=== PATIENT | female | born 1990 | race Caucasian/White ===

== ENCOUNTER 2016-07-28 10:40 | Observation (INO) | payer OTHER ==
[~2016-07-28] VITALS: Ht 165 cm; Wt 79.4 kg
== END 2016-07-28 15:25 | disposition home or self-care (01) ==
LOC: 4S 10:40
PROVIDERS: ADMIT Obstetrics & Gynecology; ATTEND Obstetrics & Gynecology
DX: O36.8130 Decreased fetal movements, third trimester, not applicable or unspecified (principal); Z3A.36 36 weeks gestation of pregnancy
CPT/HCPCS: 59025; 76805; G0378

== ENCOUNTER 2016-08-08 11:28 | Inpatient (IN) | payer OTHER ==
[~2016-08-08] VITALS: Ht 165 cm; Wt 80.3 kg
[2016-08-08] MEDS ORDERED: RINGERS SOLUTION,LACTATED 1,000 ML IV PRN (11:30)
[2016-08-08] MEDS ORDERED: LIDOCAINE HCL/PF 1% 30 ML VIAL INJ PRN (11:30)
[2016-08-08] MEDS ORDERED: METHYLERGONOVINE MALEATE 0.2 MG/ML VIAL IM PRN (11:30)
[2016-08-08] MEDS ORDERED: MISOPROSTOL 25 MCG TABLET VG SCH (11:30)
[2016-08-08] MEDS ORDERED: CITRIC ACID/SODIUM CITRATE 30 ML SOLUTION UDCUP PO PRN (11:30)
[2016-08-08] MEDS ORDERED: FentaNYL CITRATE-PF 100 MCG/2 ML VIAL IVP PRN (11:30)
[2016-08-08] MEDS ORDERED: METOCLOPRAMIDE HCL 5 MG/ML 2 ML VIAL IVP PRN (11:30)
[2016-08-08] MEDS ORDERED: OXYTOCIN 30 UNITS/LACT RINGERS 500 ML IV ONE (11:30)
[2016-08-08 11:42] VITALS: BP 119/78
[2016-08-08] MEDS ORDERED: PREN1TAB80 PO (11:46)
[2016-08-08 12:12] LABS: BASOPHILS % (AUTO) 0.2 % (0.0-2.0); EOSINOPHILS % (AUTO) 0.6 % (1.0-6.0); HEMATOCRIT 33.8 % (36-46); HEMOGLOBIN 10.8 g/dL (12.0-16.0); LYMPHOCYTES # (AUTO) 2.1 K/uL (1.0-4.8); MEAN CORPUSCULAR HEMOGLOBIN 28.9 pg (26.0-34.0); MEAN CORPUSCULAR HGB CONC 31.9 G/dL (31.0-37.0); MEAN CORPUSCULAR VOLUME 91 fL (80-100); MONOCYTES # (AUTO) 0.8 K/uL (0.1-1.0); NEUTROPHILS # (AUTO) 7.8 K/uL (1.8-7.7); NEUTROPHILS % (AUTO) 72.2 % (40.0-70.0); PLATELET COUNT (AUTO) 281 K/uL (150-450); RED BLOOD CELL COUNT(AUTO) 3.73 MIL/uL (4.00-5.20); RED CELL DISTRIBUTION WIDTH 13.5 % (11.5-14.5); WHITE BLOOD COUNT (AUTO) 10.8 K/uL (4.5-11.0)
[2016-08-08] MEDS: RINGERS SOLUTION,LACTATED 1,000 ML IV SCH ×2 (12:15→19:01)
[2016-08-08] MEDS ORDERED: OXYTOCIN 30 UNITS/LACT RINGERS 500 ML IV PRN (16:43)
[2016-08-08] MEDS ORDERED: OXYGEN THERAPY IH SCH (20:00)
[2016-08-09] MEDS: RINGERS SOLUTION,LACTATED 1,000 ML IV SCH ×2 (02:19→11:48)
[2016-08-09] MEDS ORDERED: FentaNYL/BUPIV 0.125%/NS/PF 200 ML ED ONE (12:55)
[2016-08-09] MEDS ORDERED: FentaNYL/BUPIV 0.125%/NS/PF 200 ML ED PRN (13:51)
[2016-08-09] MEDS ORDERED: DiphenhydrAMINE HCL 50 MG/ML VIAL IVP PRN (14:00)
[2016-08-09] MEDS ORDERED: ONDANSETRON HCL 4 MG/2 ML VIAL IVP PRN (14:00)
[2016-08-09] MEDS ORDERED: NALBUPHINE HCL 10 MG/ML VIAL IVP PRN (14:00)
[2016-08-09] MEDS ORDERED: RINGERS SOLUTION,LACTATED 1,000 ML IV ONE (17:03)
[2016-08-09] MEDS ORDERED: LANOLIN 7 GM OINTMENT TP PRN (17:15)
[2016-08-09] MEDS ORDERED: IBUPROFEN 600 MG TABLET PO PRN (17:15)
[2016-08-09] MEDS ORDERED: OxyCODONE HCL/ACETAMINOPHEN 5-325 MG TABLET PO PRN ×2 (17:15)
[2016-08-09] MEDS ORDERED: MEASLES/MUMPS/RUBELLA VACCINE, LIVE 0.5 ML/VIAL SQ ONE (17:15)
[2016-08-09] MEDS ORDERED: GLYCERIN/WITCH HAZEL LEAF 40 PADS JAR TP PRN (17:15)
[2016-08-09] MEDS ORDERED: BENZOCAINE 20%/MENTHOL 56 GM SPRAY CANISTER TP PRN (17:15)
[2016-08-09] MEDS: MAGNESIUM HYDROXIDE SUSPENSION 30 ML UDCUP PO SCH (21:35)
[2016-08-10] MEDS: MAGNESIUM HYDROXIDE SUSPENSION 30 ML UDCUP PO SCH (09:00)
[2016-08-10] MEDS ORDERED: IBUP-1547 PO (16:20)
== END 2016-08-10 17:20 | disposition home or self-care (01) | DRG 775 ==
LOC: OBSVTOIN 11:28 → 4S 11:28
PROVIDERS: ADMIT Obstetrics & Gynecology; ATTEND Obstetrics & Gynecology
PROC: 10E0XZZ Delivery of Products of Conception, External Approach (ICD-10-PCS; principal; 2016-08-09)
PROC: 10907ZC Drainage of Amniotic Fluid, Therapeutic from Products of Conception, Via Natural or Artificial Opening (ICD-10-PCS; 2016-08-09)
PROC: 3E0S3CZ (ICD-10-PCS; 2016-08-09)
PROC: 00HU33Z Insertion of Infusion Device into Spinal Canal, Percutaneous Approach (ICD-10-PCS; 2016-08-09)
DX: O41.03X0 Oligohydramnios, third trimester, not applicable or unspecified (principal); Z3A.38 38 weeks gestation of pregnancy; Z37.0 Single live birth
CPT/HCPCS: 86850; 86900; 86901; J2590; J3010; J3490; J7120